=== PATIENT | male | born 1995 | race Caucasian/White ===

== ENCOUNTER 2019-01-03 07:03 | Emergency (ER) | payer OTHER ==
[2019-01-03 07:58] VITALS: BP 128/70
--- NOTE | 2019-01-03 08:16 | ED ---
Head Injury - HPI Summary HPI Summary: Patient is an otherwise healthy 23-year-old male who presents to the ED with a head injury. He states approximately 1 hour [employer], he was attempting to close his window when the window fell and hit his head. He denies LOC. Denies headache, visual changes, pain to the head, dizziness or weakness. He states the glass shattered in his hair and wanted to get this looked at. He takes no medications. No allergies. He has never had a concussion before. Denies any memory loss or confusion. - History Of Current Complaint Chief Complaint: EDHeadInjury Stated Complaint: "HIT HIS HEAD" PER PT Time Seen by Provider: 01/03/19 07:24 Hx Obtained From: Patient Onset/Duration: Started Hours Ago Onset of Pain: Hours Severity Currently: None Severity Initially: Mild Pain Intensity: 0 Pain Scale Used: 0-10 Numeric - Risk Factors SDH Risk Factor: Negative PMH/Surg Hx/FS Hx/Imm Hx Previously Healthy: Yes - Immunization History Date of Tetanus Vaccine: 2014 Hx Pertussis Vaccination: No Immunizations Up to Date: Yes Infectious Disease History: No Infectious Disease History: Denies: Traveled Outside the [place] in Last 30 Days - Social History Occupation: Employed Full-time Lives: With Family Alcohol Use: Occasionally Hx Substance Use: No Substance Use Type: Reports: None Hx Tobacco Use: No Smoking Status (MU): Never Smoked Tobacco Review of Systems Constitutional: Negative Negative: Fever, Chills, Fatigue, Skin Diaphoresis Negative: Palpitations, Chest Pain Negative: Shortness Of Breath, Cough Negative: Abdominal Pain, Vomiting, Nausea Negative: Arthralgia, Myalgia Skin: Negative Neurological: Negative All Other Systems Reviewed And Are Negative: Yes Physical Exam Triage Information Reviewed: Yes Vital Signs On Initial Exam: Initial Vitals Temp Pulse Resp BP Pulse Ox 98.1 F 57 16 132/74 96 01/03/19 07:12 01/03/19 07:12 01/03/19 07:12 01/03/19 07:12 01/03/19 07:12 Vital Signs Reviewed: Yes Appearance: Positive: Well-Appearing, Well-Nourished Skin: Positive: Warm, Skin Color Reflects Adequate Perfusion, Other - 0.5 cm in length superficial scalp abrasion to the left occipital area Head/Face: Positive: Normal Head/Face Inspection Eyes: Positive: EOMI, CAIO, Conjunctiva Clear Neck: Positive: Supple, No Lymphadenopathy Respiratory/Lung Sounds: Positive: Clear to Auscultation, Breath Sounds Present Cardiovascular: Positive: RRR, Pulses are Symmetrical in both Upper and Lower Extremities Musculoskeletal: Positive: Strength/ROM Intact Neurological: Positive: Speech Normal Psychiatric: Positive: Affect/Mood Appropriate AVPU Assessment: Alert Diagnostics - Vital Signs Vital Signs Temp Pulse Resp BP Pulse Ox 01/03/19 07:57 98 F 60 16 128/70 100 01/03/19 07:12 98.1 F 57 16 132/74 96 - Laboratory Lab Statement: Any lab studies that have been ordered have been reviewed, and results considered in the medical decision making process. Head Injury Course/Dx Course Of Treatment: During this course of treatment, the patient's evaluated for head injury. On physical examination, patient appears well, in no acute distress and is smiling on exam. He denies any headache, visual changes, memory loss or confusion. Neuro exam intact. No gait abnormalities. There is a significant amount of small shards of glass noted in the hairline region. RN and provider attempted to dislodge any larger pieces of glass and he is encouraged to rinse hair out with a fine tooth comb after he arrives home. There is a small abrasion to the left posterior side of the head which is approximately 0.5 cm in length and is very superficial. He will be diagnosed with head injury. - Diagnoses Provider Diagnoses: Head injury Discharge - Sign-Out/Discharge Documenting (check all that apply): Patient Departure Patient Received Moderate/Deep Sedation with Procedure: No - Discharge Plan Condition: Stable Disposition: HOME Patient Education Materials: Head Injury (ED) Referrals: No Primary Care Phys,NOPCP [Primary Care Provider] - Additional Instructions: As discussed, wash hair and comb out any remaining glass - Billing Disposition and Condition Condition: STABLE Disposition: Home
== END 2019-01-03 07:57 | disposition home or self-care (01) ==
LOC: ED 07:03
DX: S09.90XA Unspecified injury of head, initial encounter (principal); W22.8XXA Striking against or struck by other objects, initial encounter
CPT/HCPCS: 99281